=== PATIENT | female | born 1960 | race Caucasian/White ===

== ENCOUNTER 2019-04-30 13:34 | Inpatient (IN) | payer OTHER ==
[~2019-04-30] VITALS: Ht 152.4 cm; Wt 119.0 kg
[2019-04-30 13:35] VITALS: BP 123/66
[2019-04-30 14:51] LABS: ABSOLUTE NEUTROPHILS 8.4 thou/uL (1.4-8.2); BASOPHILS 1.4 % (0.0-2.0); EOSINOPHILS 2.1 % (0.0-3.0); HEMATOCRIT 21.3 % (37.0-47.0); HEMOGLOBIN 7.2 gm/dL (12.0-15.0); LYMPHOCYTES 18.7 % (24.0-44.0); MCH 31.3 pg (26.0-34.0); MCHC 33.9 g/dL (28.0-37.0); MCV 92.2 fL (80.0-100.0); MONOCYTES 7.7 % (1.0-8.0); PLATELET COUNT 377 thou/uL (150-400); POLYS 70.1 % (36.0-66.0); RBC 2.31 mil/uL (4.20-5.00); RDW 15.2 % (10.5-14.5)
[2019-04-30 15:01] LABS: CALCIUM 8.2 mg/dL (8.5-10.1); CREATININE 5.1 mg/dL (0.6-1.0); POTASSIUM 3.9 mmol/L (3.5-5.1)
[2019-04-30 17:41] LABS: URINE BILIRUBIN NEGATIVE (Negative); URINE BLOOD NEGATIVE (Negative); URINE CLARITY CLEAR; URINE COLOR YELLOW; URINE GLUCOSE-RANDOM* NEGATIVE (Negative); URINE KETONES NEGATIVE (Negative); URINE NITRITE-REFLEX NEGATIVE (Negative); URINE PROTEIN (DIPSTICK) TRACE (Negative); URINE UROBILINOGEN 0.2 E.U./dl (0.2-1.0)
[2019-04-30 17:43] LABS: URINE LEUKOCYTES-REFLEX 1+ (Negative)
[2019-04-30 17:51] LABS: CASTS None Seen /LPF (None Seen); CRYSTALS None Seen /LPF (None Seen); SQUAMOUS 0-3 Few /LPF (0-3)
[2019-04-30 17:52] LABS: BACTERIA-REFLEX 1-9 Few /HPF (None Seen); URINE RBC None Seen /HPF (0-2)
[2019-04-30 18:28] LABS: % SATURATION 16 % (20-39); IRON 41 ug/dL (50-170); TIBC 263 ug/dL (250-450)
[2019-04-30 18:31] LABS: ALBUMIN 2.2 g/dL (3.4-5.0); TOTAL PROTEIN 6.9 g/dL (6.4-8.2)
[2019-04-30 19:26] LABS: TSH 5.2 uIU/mL (0.358-3.740)
[2019-04-30 21:04] VITALS: BP 135/72
[2019-04-30 22:06] VITALS: BP 149/71
--- NOTE | 2019-05-01 06:06 | NUR ---
PATIENT ARRIVED ON UNIT AT 2145 VIA CART ACCOMPANIED BY S/O AND ER PERSONL. ALERT AND ORIENTED X5. PRESSURE ULCER ON BOTTOM. INCISIONS ON R LOWER EXT. SLEPT MOST OF NIGHT. C/O PAIN OF 3, NO PAIN MED GIVEN THUS FAR.
[2019-05-01 08:04] VITALS: BP 172/83
[2019-05-01 12:34] LABS: HEMATOCRIT 25.7 % (37.0-47.0); HEMOGLOBIN 8.6 gm/dL (12.0-15.0); MCH 31.4 pg (26.0-34.0); MCHC 33.4 g/dL (28.0-37.0); RBC 2.73 mil/uL (4.20-5.00); RDW 15.5 % (10.5-14.5); WBC 11.9 thou/uL (4.0-11.0)
[2019-05-01 12:46] LABS: CALCIUM 7.4 mg/dL (8.5-10.1); CREATININE 4.9 mg/dL (0.6-1.0); POTASSIUM 3.7 mmol/L (3.5-5.1)
--- NOTE | 2019-05-01 14:01 | NUR ---
DR CORCORAN WOUND CARE DOCTOR HERE ASKED FOR CULTURES PROXIMAL AND DISTAL OF RIGHT THIGH INCISION SITES TO BE OBTAINED, THIS NURSE DID AND TOOK TO LAB. PICTURES TAKEN AND IN CHART. DR CORCORAN PUT IN SURGICAL CONSULT WITH DR MORROW.
--- NOTE | 2019-05-01 14:09 | NUR ---
REQUESTED TO HAVE A BARIATRIC COMMODE DELIVERED TO THE PATIENT'S ROOM. THE COMPUTER HARDWARE TECHNICIAN IS LOOKING INTO CENTRAL SUPPLY. THE CURRENT COMMODE IS TOO SMALL, SHE HAS OPEN WOUNDS ON HER BUTTOCK PRIOR TO ADMIT. THANK YOU
[2019-05-01 16:48] VITALS: BP 185/77
[2019-05-01 17:43] LABS: URINE BILIRUBIN NEGATIVE (Negative); URINE BLOOD NEGATIVE (Negative); URINE CLARITY CLEAR; URINE COLOR YELLOW; URINE GLUCOSE-RANDOM* NEGATIVE (Negative); URINE KETONES NEGATIVE (Negative); URINE LEUKOCYTES TRACE (Negative); URINE NITRITE NEGATIVE (Negative); URINE PROTEIN (DIPSTICK) TRACE (Negative); URINE UROBILINOGEN 0.2 E.U./dl (0.2-1.0)
[2019-05-01 22:55] VITALS: BP 170/86
[2019-05-02 05:54] VITALS: BP 156/77
--- NOTE | 2019-05-02 06:04 | NUR ---
PATENT ALERT AND ORIENTED X4. UP TO [facility]SC WITH ASSIST. ACCUCHECK WAS 225, RECEIVED 10 UNITS LISPRO INSULIN. NPO SINCE [place] FOR SURGERY. C/O PAIN MED GIVEN. SLEPT MOST OF NIGHT.
[2019-05-02 08:04] LABS: HEMATOCRIT 24.5 % (37.0-47.0); HEMOGLOBIN 8.3 gm/dL (12.0-15.0); MCH 31.5 pg (26.0-34.0); MCHC 33.8 g/dL (28.0-37.0); MCV 93.2 fL (80.0-100.0); RBC 2.63 mil/uL (4.20-5.00); RDW 15.6 % (10.5-14.5); WBC 10.6 thou/uL (4.0-11.0)
[2019-05-02 08:15] LABS: CALCIUM 7.8 mg/dL (8.5-10.1); CREATININE 4.9 mg/dL (0.6-1.0)
--- NOTE | 2019-05-02 08:26 | HC ---
[facility] [place] [address] CONSULTATION Name: SHEYLA BERGER Room #: 429-P ADM IN M.R.#: [id number] Admission: 04/30/19 ������������������ Attend Phys: Amos Madrid MD Discharge: ������������������ Date of : 60 Report #: [id number] THIS REPORT FOR: //name// CC: Amos Pablo DATE OF SERVICE: 05/01/2019 WOUND CARE CONSULTATION NOTE LOCATION: [facility]. REASON FOR CONSULTATION: Closed incisions of right leg status post debridement at [facility] with cellulitis and drainage in a morbidly obese woman with diabetes mellitus type 2. HISTORY OF PRESENT ILLNESS: The patient is a 58-year-old woman, suffering from morbid obesity, diabetes type 2, asthma, chronic kidney disease stage 3, hypertension and diabetic neuropathy, who about a week ago last week at [facility] had treatment of her right leg for multiple cat scratches and apparently local infection. She had had recurrent right knee pain and had fluid drained from the right knee. She apparently had incision and drainage or debridement of wounds on her right leg which were closed with closed incision of the right lateral thigh with nylon sutures. These wounds began to become sore, red and draining and she is admitted through the Emergency Room. ALLERGIES: TO BACTRIM, CODEINE, NAPROXEN AND SULFA. LABORATORY DATA: Creatinine 5.1. White blood count 12,000, hemoglobin 7.2 and hematocrit 21.3. SOCIAL HISTORY: The patient does not smoke or drink. PHYSICAL EXAMINATION: GENERAL: Shows a morbidly obese, very pleasant, conversant woman who is a good historian. HEENT: Mucous membranes are moist. NECK: Supple. ABDOMEN: Morbidly obese. HEART: Shows regular rate and rhythm. EXTREMITIES: Examination of both legs shows some healed scratches of both legs. There is a small surgical incision at the right anterior knee with crusted eschar and a single nylon suture. Examination of the patient's right lateral thigh shows 2 surgical incisions closed with multiple nylon sutures. These incisions are located in a vertical fashion. One incision is approximately 8 cm long, the other incision is approximately 5 cm long. There is some redness at [address] [address] CONSULTATION Name: SHEYLA BERGER Room #: 429-P ADM IN M.R.#: [id number] Admission: 04/30/19 ������������������ Attend Phys: Amos Madrid MD Discharge: ������������������ Date of : 60 Report #: [id number] the suture line extending about 1 cm away from the wound. There is some serous drainage on the dressings. When a sterile cotton-tipped applicator is placed at the wound gap, there seemed to be large volume hematoma and bloody seroma involving both wounds with the Q-tip going deep in the wound 7 cm or 8 cm. Clinical impression of large infected seromas or liquified hematomas of both legs. Wound cultures taken. IMPRESSION: 1. Morbid obesity. 2. 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 3. Nonhealing surgical wounds of right leg with significant large subcutaneous seromas, clinically infected. PLAN: We will consult Dr. Marnie Martínez of General Surgery to discuss whether sutures should simply be taken out at the bedside and the wounds irrigated and packed or whether the patient will be better served by going to the operating room, having the sutures removed there and the wounds widely irrigated and debrided. 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 Continue IV antibiotics. Awaiting General Surgery consultation. ��������������������������������������������� <ELECTRONICALLY SIGNED> ���������������������������������������� By: James Vizcaino MD ��������������������������������������������� 05/02/19 0826 1231 1338 James Vizcaino MD /nt
--- NOTE | 2019-05-02 09:03 | NUR ---
PT TAKEN TO OR FOR RIGHT THIGH I&D. PT ALERT XS 4, NO PAIN NO RESP DISTRESS.REPORT GIVEN TO OR SENT IV ABT'S ALONG WITH PATIENT,
--- NOTE | 2019-05-02 13:13 | NUR ---
PT ARRIVED BACK ON UNIT AT 1143 GAVE PRN PAIN MED TOOK VS 97.8 18 91 156/68 O2 SAT = 99% RA. GAVE AM MEDS. PT 'S DRESSING INTACT TO RIGHT THIGH. PT SLEEPING AT 1314.
--- NOTE | 2019-05-02 17:49 | HC ---
[facility] [address] [place] [address] CONSULTATION Name: SHEYLA BERGER Room #: 429-P ADM IN M.R.#: [id number] Admission: 04/30/19 ������������������ Attend Phys: Amos Madrid MD Discharge: ������������������ Date of : 60 Report #: [id number] THIS REPORT FOR: //name// CC: Amos Pablo DATE OF SERVICE: 05/01/2019 CONSULTATION: Infectious diseases. HISTORY OF PRESENT ILLNESS: Ms Berger is a 58-year-old woman admitted to [facility] on 05/02/2019 with working diagnosis of sepsis. The patient had been hospitalized 04/18/2019 to 04/22/2019 in [place], [place], for sepsis associated with infection of the leg. The patient had multiple cat scratches from a new kitten and had a large abscess. One area developed a deep abscess This was opened and drained and then closed with riccardo. Cultures grew methicillin-sensitive Staph aureus. This was done in an outside hospital. The patient was discharged for acute rehab at [facility]. In a day or so prior to admission, the patient was weaker and falling. A routine laboratory studies show the creatinine was 6. The patient was transferred to acute care for renal failure. Infectious Disease consultation was requested because of the abscess. Blood cultures were done and one of them is growing gram-positive cocci. The patient has a past history of diabetes, hypertension and hyperlipidemia. Other diagnoses include chronic kidney disease stage 3 or 4, asthma, anxiety and depression. ALLERGIES: THE PATIENT NOTES ALLERGY TO BACTRIM AND CODEINE. FAMILY HISTORY: Noncontributory. SOCIAL HISTORY: The patient is single. I believe she normally lives by herself in [place], [place]. She has no history of tobacco, alcohol or drugs. REVIEW OF SYSTEMS: At this time, the patient really offers no complaints. She does not seem to be totally with it, may receive some pain medication or sleeping medication prior to my visit. However, the patient does answer questions. Denies any head, neck, chest, GI or complaints. She has some mild discomfort in her right thigh. PHYSICAL EXAMINATION: GENERAL: The patient appears her stated age, alert and oriented, not in any distress. VITAL SIGNS: Show maximum measured temperature of 38.3, blood pressure 185/77. SKIN: Shows a number of superficial excoriations consistent with healing cat [facility] [address] [place] [address] CONSULTATION Name: SHEYLA BERGER Room #: 429-P [facility] IN .R.#: [id number] Admission: 04/30/19 ������������������ Attend Phys: Amos Madrid MD Discharge: ������������������ Date of : 60 Report #: [id number]. She had a surgical wound on the right lateral upper thigh closed with riccardo. There was minimal drainage and the wound had minimal to moderate erythema. ENT: Negative. HEART: Sounds normal. LUNGS: Clear. ABDOMEN: Belly obese, soft, not tender without mass nor organomegaly. EXTREMITIES: Otherwise unremarkable. LABORATORY STUDIES: Show the white count was 11.9, hemoglobin 8.6, platelet 479,000. Electrolytes are normal. BUN 49, creatinine was 4.9, glucose 165. One blood culture is growing gram-positive cocci. ASSESSMENT AND PLAN: In summary, diabetic with healing abscess. CT scan suggests recurrent fluid collection, possibly seroma or more infection in the leg. This is associated with fever and elevated creatinine. The blood culture may represent a significant pathogen or may just represent a contamination with coag negative staph. For now, we will wait the final workup on the isolate in the blood. I will order 2 more blood cultures this evening and leave a p.r.n. order for blood cultures if the patient has fever. We will continue the patient on vancomycin dosed by pharmacy. If the creatinine does not show improvement, we may want to consider changing to linezolid. The patient is scheduled for return to the operating room to remove the stitches and washout of the seroma or abscess which remains in the thigh. I discussed with the patient that she may need to do something with the kitten, either give it to someone until it settles down or have it declawed to prevent recurring trauma to her diabetic skin. It sounds that the patient has not taken her diabetes, particularly seriously, which has also contributed to her tendency to have exaggerated infections after relatively minor trauma. At this point, I am not sure if the patient is willing to make these changes after she leaves rehab. For now, I will continue the patient on antibiotics, await results of cultures. We will continue supportive therapy. I will be happy to follow the patient while she is in the hospital through the weekend until Dr. Landaverde returns on Friday. ��������������������������������������������� <ELECTRONICALLY SIGNED> ���������������������������������������� By: Eliezer Melchor MD ��������������������������������������������� 05/02/19 1749 0850 1236 Eliezer Melchor MD /nt
[2019-05-02 19:31] VITALS: BP 156/68
[2019-05-02 19:33] VITALS: BP 155/68
[2019-05-02 19:34] VITALS: BP 155/70
[2019-05-02 19:36] VITALS: BP 119/66
[2019-05-02 20:07] VITALS: BP 145/67
--- NOTE | 2019-05-03 04:17 | NUR ---
PT TRANSFERRING TO BEDSIDE COMMODE WITH ASSIST OF 1 AND IS TOLERATING FAIR. LORTAB PROVIDING PAIN RELIEF. RESTING COMFORTABLY. NO NEEDS VOICED. CALL LIGHT WITHIN REACH. WILL CONTINUE TO PROVIDE FREQUENT OBSERVATION.
--- NOTE | 2019-05-03 06:54 | O ---
[address] [address] OPERATIVE REPORT Name: SHEYLA BERGER Room #: 429-P ADM IN M.R.#: [id number] Admission: 04/30/19 ������������������ Attend Phys: Amos Madrid MD Discharge: ������������������ Date of : 60 Report #: [id number] THIS REPORT FOR: //name// CC: Amos Pablo DATE OF SERVICE: 05/02/2019 SERVICE: Orthopedics. FACILITY: [facility]. SURGEON: Gary Alves MD FRENCH POLISHER: Jamilah Mccray NP INDICATIONS FOR FRENCH POLISHER: Extremity positioning, retraction of the large soft tissue envelope and assistance with the debridement. PREOPERATIVE DIAGNOSES: 1. History of right thigh abscess. 2. Right thigh seroma. 3. Status post multiple right thigh irrigation and debridement procedures. POSTOPERATIVE DIAGNOSES: 1. History of right thigh abscess. 2. Right thigh seroma. 3. Status post multiple right thigh irrigation and debridement procedures. PROCEDURE: Irrigation and debridement down to the muscle layer, total surface area measuring 40 x 20 cm. COMPLICATIONS: None. DRAINS: None. SPECIMENS: Culture swab sent for aerobic and anaerobic. FINDINGS: 1. Serous-appearing fluid, approximately 20 mL total volume. 2. Moderate amount of fat necrosis and myonecrosis encountered and treated with debridement. 3. Wound packed open. HISTORY: The patient is a female who has a history of non-aged rather severe right hip and thigh abscess that is now approximately 2 weeks status post the [address] [place] [address] OPERATIVE REPORT Name: SHEYLA BERGER Room #: 429-P ADM IN M.R.#: [id number] Admission: 04/30/19 ������������������ Attend Phys: Amos Madrid MD Discharge: ������������������ Date of : 60 Report #: [id number] first incision and drainage procedure, which was followed by 2 subsequent procedures. She was then discharged to rehabilitation. She was readmitted to the hospital last night with an acute spike in her creatinine due to baseline history of renal disease. She was noted to have serous fluid draining out of the wound and Orthopedics was consulted to reevaluate. She had an evaluation by the wound care. The wound care team and together we felt that surgical treatment was most appropriate. I explained this to the patient and she gave full informed consent and agreed with this approach. Risks, benefits, alternatives and indication of surgery were discussed with her in detail. Risks include, but not limited to, pain, bleeding, infection, recurrent wound healing problems and infection, need for further surgery as well as complications related to anesthesia such as stroke, heart attack, pulmonary complications, thromboembolic disease and . Despite these risks, she wished to proceed. PROCEDURE IN DETAIL: After right lower extremity was correctly identified in the preoperative holding area as the operative extremity, the patient was taken to the operating room where general anesthesia was induced without complication. She was padded appropriately. Prophylactic antibiotics were not indicated as she is on antibiotic regimen currently. The right leg was prepped and draped in standard sterile fashion. Timeout procedure was performed. The 2 proximal incisions were evaluated, both were draining serous fluid, so I removed the stitches in all of them and then opened the wound. There was only limited healing at the skin level and serous fluid was seen to egress. There was about 20 mL total of serous fluid combined of the 2 incisions and then used a Zepeda as well as scissors to perform a debridement of the necrotic soft tissue all the way through the skin layer down to the muscle. There was no bone that required debridement. I explored the proximal wound proximally, posteriorly, anteriorly and then distally and then did the same with the distal wound. There were no pockets of purulence. A total of 3 liters of fluid was thoroughly lavaged with the Pulsavac. The first half of the fluid volume was lavaged, then we resumed sharp debridement and then completed the lavage and debridement at this point. Based on consultation with the wound care team, we felt that packing it open was most appropriate and packed both wounds with Dakin-soaked Kerlix. Sterile dressing was applied. The patient was awakened by anesthesia and taken to recovery room in stable condition. No complications were noted and all counts were correct. ��������������������������������������������� <ELECTRONICALLY SIGNED> ���������������������������������������� By: Gary Alves MD ��������������������������������������������� 05/03/19 0654 1722 193 Gary Alves MD /nt
[2019-05-03 07:05] LABS: ABSOLUTE NEUTROPHILS 10.9 thou/uL (1.4-8.2); BASOPHILS 1.1 % (0.0-2.0); EOSINOPHILS 0.7 % (0.0-3.0); HEMATOCRIT 21.4 % (37.0-47.0); LYMPHOCYTES 13.3 % (24.0-44.0); MCH 31.1 pg (26.0-34.0); MCHC 32.9 g/dL (28.0-37.0); MCV 94.7 fL (80.0-100.0); MONOCYTES 8.3 % (1.0-8.0); PLATELET COUNT 404 thou/uL (150-400); POLYS 76.6 % (36.0-66.0); RBC 2.26 mil/uL (4.20-5.00); WBC 14.2 thou/uL (4.0-11.0)
[2019-05-03 07:15] VITALS: BP 165/63
[2019-05-03 07:19] LABS: ALBUMIN 2.3 g/dL (3.4-5.0); CALCIUM 7.3 mg/dL (8.5-10.1); CREATININE 4.8 mg/dL (0.6-1.0); PHOSPHORUS 7.2 mg/dL (2.5-4.9); POTASSIUM 4.4 mmol/L (3.5-5.1)
--- NOTE | 2019-05-03 09:13 | NUR ---
PT RESTING IN BED GIVEN PRN PAIN MED. PT ALERT XS 4. DR LEVI ASKED FOR BLADDER SCAN RESULTS 561 CC THEN URINATED 350CC REPEAT BLADDER SCAN 120CC CALL LEFT MESSAGE ON DR LEVI TELEPHONE
[2019-05-03 15:44] VITALS: BP 142/52
--- NOTE | 2019-05-03 19:35 | NUR ---
PT RESTING QUIETLY IN BED DRESSING TO RIGHT HIP, USED DAKINS TOMMORROW PATIENT TO HAVE WOUND VAC PLACED. PT ALERT XS 4 USES BSC, PT PLEASANT AND COOPERATIVE WITH CARE.
[2019-05-03 20:20] VITALS: BP 141/57
[2019-05-04 01:09] LABS: GLYCOHEMOGLOBIN (HGB A1C) 7.9 % (4.8-5.6)
--- NOTE | 2019-05-04 03:48 | NUR ---
ASSUMED PT CARE AROUND 1900. A&OX4. C/O RIGHT LEG PAIN. PAIN MEDICATION GIVEN WITH SOME RELIEF. RIGHT LATERAL THIGH DRESSINGS CHANGED DRESSING WAS SATURATED. UP TO [facility] WITH ASSISTANCE. TOLERATED WELL. PT SLEPT MOST OF THE NIGHT. RESP EVEN AND UNLABORED. BARRIER CREAM APPLIED TO LEFT BUTTOCK ULCER. PT IS ABLE TO HELP REPOSITION HERSELF IN BED. NO MAJOR COMPLAINTS THIS SHIF. FALL PRECAUTIONS IN PLACE. PROGRESSING SLOWLY TOWARD POC GOALS. WILL CONTINUE TO MONITOR FURTHER.
[2019-05-04 05:04] VITALS: BP 154/76
[2019-05-04 06:08] LABS: HEMOGLOBIN 6.8 gm/dL (12.0-15.0)
[2019-05-04 06:10] LABS: HEMATOCRIT 20.2 % (37.0-47.0); MCHC 33.6 g/dL (28.0-37.0); MCV 95.1 fL (80.0-100.0); RBC 2.13 mil/uL (4.20-5.00); WBC 24.2 thou/uL (4.0-11.0)
[2019-05-04 06:25] LABS: ALBUMIN 2.2 g/dL (3.4-5.0); CALCIUM 6.9 mg/dL (8.5-10.1); CREATININE 4.5 mg/dL (0.6-1.0); PHOSPHORUS 7.4 mg/dL (2.5-4.9); POTASSIUM 4.7 mmol/L (3.5-5.1)
[2019-05-04 09:00] VITALS: BP 141/52
--- NOTE | 2019-05-04 09:00 | NUR ---
PT UP AT THIS TIME WANTING PAIN MEDICATION. PT STATED SHE WOKE UP AT 0500 THIS AM AND DIDN'T KNOW IF SHE COULD GET BACK TO SLEEP. PT STATED SHE DID AND WOKE UP AT 0900. PT LUNGS CLEAR AND ON ROOM AIR. PT HAS MULTIPLE SCRATCHES TO LOWER EXT. PT STATED PAIN IS 7 ON 1-10 SCALE TO LEFT LEG. PT TOLERATED DIET. PT VERY TALKATIVE AND PLEASANT.
--- NOTE | 2019-05-04 09:30 | NUR ---
ADM HYDROCODONE 5MG PO FOR PAIN TO LEG.
--- NOTE | 2019-05-04 10:41 | NUR ---
PT GOT UP WITH THERAPY AND HAD A BM.
--- NOTE | 2019-05-04 12:02 | NUR ---
Assess due to high BMI 51.2=extreme class III obesity. Admitted with sepsis and EMILY, hx recent falls. Hx diabetes, A1C 7.9. Wound care has been consulted for thigh abscess. Renal function labs elevated with hx CKD III. Eating 100% of meals. Had few questions regarding diet and would like further education information to take home. General discussion of adequate nutrition provided. Low nutrition risk
--- NOTE | 2019-05-04 14:33 | NUR ---
ADM DILAUDID 0.5MG IV PREMEDICATION FOR WOUND VAC, WOUND TEAM HERE TO PLACE WOUND VAC TO RT THIGH.
--- NOTE | 2019-05-04 14:46 | NUR ---
ASSESSMENT-PT HAD BEEN AT [facility] AND UPDATE PROVIDED TO THEM. SHE NORMALLY LIVES AT HOME WITH HER S.O. IN [place]. PT HAS NOT HAD ANY HH SERVICES. PRIOR TO ILLNESS PT DID MOST OF THE HOUSEHOLD THINGS BUT HE ASSISTED WITH LAUNDRY. PT HAS A TUB/SHOWER. PT HAS A SON IN THE AREA. S.O. DRIVES BUT PT DOES NOT. PT'S S.O. IN GOOD HEALTH AND ABLE TO ASSIST. HE WORKS AT [employer]. PT HS BEEN USING A CANE TO GET AROUND. FOLLOWING TO ASSIST WITH DC PLANNING.
--- NOTE | 2019-05-04 15:45 | NUR ---
ADM HYDROCODONE 5MG PO FOR PAIN TO RT THIGH. WOUND CARE WAS HERE AND PLACED WOUND VAC. PT STATED PAIN LEVEL IS 10 AT THIS TIME. PT STATED IT FEELS LIKE TAPE BEING RIPPED FROM SKIN.
[2019-05-04 19:26] VITALS: BP 151/61
[2019-05-05 02:05] VITALS: BP 145/66; BP 147/69
[2019-05-05 05:49] VITALS: BP 145/66
[2019-05-05 07:06] LABS: HEMATOCRIT 22.4 % (37.0-47.0); HEMOGLOBIN 7.4 gm/dL (12.0-15.0); MCH 30.8 pg (26.0-34.0); MCHC 33.3 g/dL (28.0-37.0); MCV 92.6 fL (80.0-100.0); RBC 2.41 mil/uL (4.20-5.00); RDW 16.6 % (10.5-14.5); WBC 12.1 thou/uL (4.0-11.0)
[2019-05-05 07:13] VITALS: BP 159/88
[2019-05-05 07:38] LABS: ALBUMIN 2.1 g/dL (3.4-5.0); CALCIUM 7.1 mg/dL (8.5-10.1); CREATININE 4.1 mg/dL (0.6-1.0); PHOSPHORUS 6.9 mg/dL (2.5-4.9); POTASSIUM 4.2 mmol/L (3.5-5.1)
--- NOTE | 2019-05-05 08:21 | NUR ---
PATIENT ALERT AND ORIENTED X4. WOUND VAC ON R HIP IN PLACE CONT AT 125. C.P PAIN, MED GIVEN. RECIEVED 1 UNIT PRBC WITH NO REACTION. ACUCHECK WAS 176, RECEIVED 8 UNITS LISPRO INSULIN. UP TO BSC WITH ASSIST OF ONE. SLEPT OFF AND ON DURING NIGHT.
--- NOTE | 2019-05-05 13:50 | NUR ---
FAXED REFERRAL TO [facility] SPOKE WITH ERIC IN ADM SHE RECEIVED REFERRAL AND THE ADM.JOSE (ISAIAS) IS REVIEWING REFERRAL. DCP TO FOLLOW.
[2019-05-05 17:04] VITALS: BP 144/62
--- NOTE | 2019-05-05 20:35 | NUR ---
VASCULAR ACCESS CONSULTED TO PLACE A PICC FOR LT ABX. PT HAS A CREAT OF 4.1 AND GFR OF 11, PT IS 58YO AND IS NEEDING VESSEL PRESERVATION FOR POSSIBLE DIALYSIS NEEDS IN THE NEAR FUTURE. ORDER PLACED FOR A TUNNELED LINE FOR 05/06/19. DISCUSSED WITH THE PT'S RN AND WILL HAVE VAT FOLLOW UP IN THE AM.
[2019-05-05 21:20] VITALS: BP 172/75
[2019-05-06 00:15] VITALS: BP 172/83
[2019-05-06 04:17] VITALS: BP 157/83
[2019-05-06 06:38] LABS: ALBUMIN 2.2 g/dL (3.4-5.0); CALCIUM 7.2 mg/dL (8.5-10.1); CREATININE 3.4 mg/dL (0.6-1.0); PHOSPHORUS 5.6 mg/dL (2.5-4.9); POTASSIUM 4.1 mmol/L (3.5-5.1)
[2019-05-06 07:37] VITALS: BP 195/94
--- NOTE | 2019-05-06 07:53 | NUR ---
ASSUMED CARE AT 1900, ASSESSMENT COMPLETED. PT C/O PAIN IN RIGHT HIP; GIVEN PO PAIN MEDS ONCE OVERNIGHT. DENIES NAUSEA OR SOB. BP ELEVATED OVERNIGHT, GAVE DOSE OF HYDRALAZINE WITH HS MEDS; BP IMPROVED BY 0400 VS. WOUND VAC TO RIGHT THIGH IN PLACE AND INTACT. DISCUSSED PT WOULD BE HAVING A CENTRAL LINE PLACED THIS AM; PER IV TEAM, IT WOULD LIKELY BE A TICC LINE PLACED IN IR. HS BLOOD SUGAR 238, GAVE 55 UNITS LANTUS AND 10 UNITS LISPRO. NO OTHER CONCERNS, SHIFT REPORT GIVEN AT 0700.
[2019-05-06 08:23] VITALS: BP 184/83
[2019-05-06 11:34] VITALS: BP 155/63
--- NOTE | 2019-05-06 13:30 | NUR ---
AT BEGINNING OF SHIFT, PLAN TO GO TO IR FOR TICC LINE PLACEMENT TODAY. UNABLE TO PERFORM DUE TO HEPARIN GIVEN. HEPARIN HELD. DR. VELASQUEZ NOTIFIED OF PLAN FOR TICC LINE TOMORROW. DR. VELASQUEZ INQUIRED ABOUT IV TEAM PLACING PICC INSTEAD OF TICC. SPOKE TO MAGAN ZIMMER FOR PICC. IV TEAM NOTIFIED OF PLAN FOR PICC TODAY.
--- NOTE | 2019-05-06 15:12 | NUR ---
CONSULTED TO PLACE A PICC FOR A PATIENT NEEDING HOME IV ANTIBIOTICS. SHE HAS CKD- TICC RECOMMENDED YESTERDAY. NEPHROLOGY WAS CALLED BY JOB GOMES AND HE APPROVED PICC PLACEMENT. DISCUSSED BENIFITS AND RISK OF DVT, INFECTION AND SCARRING OF THE UPPER ARM VESSELS AND RISK FOR THOSE WITH CKD. SHE AGREED WITH PICC PLACEMENT WELL. THE RUE BASILIC WAS WIDLEY PATENT AND 4CM DEEP. A #4F SINGLE LUMEN POWER PICC WAS PLACED PER HOSPITAL POLICY AFTER A BEDSIDE TIMEOUT WAS COMPLETED. LINE WAS TRIMMED TO 46CM AND ADVANCED WITHOUT DIFFICULTY. A STAT CHEST XRAY WAS ORDERED FOR CONFIRMATION AND THE RADIOLOGIST NOTED THE PICC TO BE AT THE [facility]. JOB GOMES NOTIFIED THAT PICC IS RELEASED FOR USE
--- NOTE | 2019-05-06 15:17 | NUR ---
SPOKE WITH FINN IN ADM AT [facility] SHE RECEIVED AUTH. DCP TO FAX DC ORDERS ONCE FINALIZED AND ARRANGED TRANSPORT VIA [facility] FOR 1700 TODAY. PT TO NOTIFY FAMILY. UNIT NOTIFIED AND CHART COPY PER US RN TO CALL REPORT TO [phone].
[2019-05-06] MEDS ORDERED: LIPITOR10 MG PO (15:40)
[2019-05-06] MEDS ORDERED: NORVASC10 MG PO (15:40)
[2019-05-06] MEDS ORDERED: IRON325 PO (15:40)
[2019-05-06] MEDS ORDERED: METOPROLOL SUCC25 M1 PO (15:40)
[2019-05-06] MEDS ORDERED: CLONAZEPAM 0.50.5 M1 PO (15:41)
[2019-05-06] MEDS ORDERED: NEURONTIN600 MG PO (15:41)
[2019-05-06] MEDS ORDERED: ZOLOFT100 MG PO (15:41)
[2019-05-06] MEDS ORDERED: LANTUS100 UNIT/M SUBQ (15:41)
[2019-05-06] MEDS ORDERED: NEURONTIN 300300 M1 PO (15:41)
[2019-05-06] MEDS ORDERED: CEFAZOLIN2 GM/100 M IV (15:42)
== END 2019-05-06 17:49 | DRG 853 ==
LOC: ER 13:34 → 4E 18:03 → EROBS 18:03 → 4E 21:39
PROVIDERS: Emergency Medicine; Hospitalist; Internal Medicine Infectious Disease; Orthopaedic Surgery Sports Medicine; ADMIT Internal Medicine
PROC: 0Y9C0ZZ Drainage of Right Upper Leg, Open Approach (ICD-10-PCS; principal; 2019-05-02)
PROC: 0KBQ0ZZ Excision of Right Upper Leg Muscle, Open Approach (ICD-10-PCS; principal; 2019-05-02)
PROC: 30233N1 Transfusion of Nonautologous Red Blood Cells into Peripheral Vein, Percutaneous Approach (ICD-10-PCS; 2019-05-05)
PROC: 02HV33Z Insertion of Infusion Device into Superior Vena Cava, Percutaneous Approach (ICD-10-PCS; 2019-05-06)
DX: A41.9 Sepsis, unspecified organism (principal); E43 Unspecified severe protein-calorie malnutrition; L76.34 Postprocedural seroma of skin and subcutaneous tissue following other procedure; N39.0 Urinary tract infection, site not specified; N17.9 Acute kidney failure, unspecified; Z68.43 Body mass index [BMI] 50.0-59.9, adult; E87.1 Hypo-osmolality and hyponatremia; L02.415 Cutaneous abscess of right lower limb; D64.9 Anemia, unspecified; F41.9 Anxiety disorder, unspecified; F32.9 Major depressive disorder, single episode, unspecified; E11.40 Type 2 diabetes mellitus with diabetic neuropathy, unspecified; E11.22 Type 2 diabetes mellitus with diabetic chronic kidney disease; E11.628 Type 2 diabetes mellitus with other skin complications; I12.9 Hypertensive chronic kidney disease with stage 1 through stage 4 chronic kidney disease, or unspecified chronic kidney disease; N18.3 Chronic kidney disease, stage 3 (moderate); Y83.8 Other surgical procedures as the cause of abnormal reaction of the patient, or of later complication, without mention of misadventure at the time of the procedure; E66.01 Morbid (severe) obesity due to excess calories; J45.909 Unspecified asthma, uncomplicated; Z88.5 Allergy status to narcotic agent; Z88.2 Allergy status to sulfonamides; Z88.1 Allergy status to other antibiotic agents; Y92.89 Other specified places as the place of occurrence of the external cause
CPT/HCPCS: 10084; 27000; 50010; 50101; 50386; 53078; 57091; 62110; 62900; 70005

== ENCOUNTER 2020-09-01 14:27 | Emergency (ER) | payer OTHER ==
[~2020-09-01] VITALS: Ht 152.4 cm; Wt 106.6 kg
[~2020-09-01 14:27] MED LIST: CEFAZOLIN2 GM/100 M IV; CLONAZEPAM 0.50.5 M1 PO; IRON325 PO; LANTUS100 UNIT/M SUBQ; LIPITOR10 MG PO; METOPROLOL SUCC25 M1 PO; NEURONTIN 300300 M1 PO; NEURONTIN600 MG PO; NORVASC10 MG PO; ZOLOFT100 MG PO
[2020-09-01] MEDS ORDERED: SOLIFENACIN SUCC5 MG PO (15:21)
[2020-09-01] MEDS ORDERED: POTASSIUM CHLO20 ME2 PO (15:21)
[2020-09-01] MEDS ORDERED: AMITRIPTYLINE H50 M2 PO (15:22)
[2020-09-01] MEDS ORDERED: PREMPRO 0.45-11 EACH PO (15:22)
[2020-09-01] MEDS ORDERED: JANUVIA100 MG PO (15:22)
[2020-09-01] MEDS ORDERED: SYMBICORT160 MCG/4. INH (15:22)
[2020-09-01] MEDS ORDERED: OMEPRAZOLE40 MG PO (15:23)
[2020-09-01] MEDS ORDERED: LEVOTHYROXINE50 MCG PO (15:23)
[2020-09-01] MEDS ORDERED: TIZANIDINE4 MG/1 TA1 PO (15:23)
[2020-09-01] MEDS ORDERED: ASA81BEC PO (15:24)
[2020-09-01] MEDS ORDERED: PIOGLITAZONE15 MG (15:24)
[2020-09-01 17:00] VITALS: BP 182/73
[2020-09-01] MEDS ORDERED: PERCOCET 5-3251 EACH PO (17:04)
== END 2020-09-01 17:00 | disposition home or self-care (01) ==
LOC: ER 14:27
DX: S30.0XXA Contusion of lower back and pelvis, initial encounter (principal); I11.0 Hypertensive heart disease with heart failure; I50.9 Heart failure, unspecified; E11.9 Type 2 diabetes mellitus without complications; E78.5 Hyperlipidemia, unspecified; J44.9 Chronic obstructive pulmonary disease, unspecified; Z90.49 Acquired absence of other specified parts of digestive tract; Z79.899 Other long term (current) drug therapy; Z79.4 Long term (current) use of insulin; Z88.2 Allergy status to sulfonamides; Z88.5 Allergy status to narcotic agent; Z88.8 Allergy status to other drugs, medicaments and biological substances; W01.0XXA Fall on same level from slipping, tripping and stumbling without subsequent striking against object, initial encounter; Y93.89 Activity, other specified; Y92.89 Other specified places as the place of occurrence of the external cause; Y99.8 Other external cause status